=== PATIENT | female | born 1960 | race Caucasian/White ===

== ENCOUNTER 2017-07-06 06:26 | Day surgery (SDC) | payer BC ==
[2017-07-06] MEDS ORDERED: LIDOCAINE 2% MDV (20MG/ML) 20ML VIAL IV ONE (15:47)
[2017-07-06] MEDS ORDERED: FENTANYL PF 100MCG/2ML VIAL IV ONE (15:47)
[2017-07-06] MEDS ORDERED: PROPOFOL 10 MG/ML VIAL IV ONE (15:47)
--- NOTE | 2017-07-09 14:00 | Operative Note ---
DATE OF SURGERY: 07/06/2017 SURGEON: Vazquez Garcia MD OPERATION: ESOPHAGOGASTRODUODENOSCOPY. INDICATIONS: This is a 57-year-old female with a history of intermittent episodes of dysphagia who presented for esophagogastroduodenoscopy. POSTOPERATIVE DIAGNOSES: 1. Normal esophagus with no specific stricture, status post Santos dilator 60-Irish. 2. Diffuse gastritis. 3. Normal duodenum. ANESTHESIA: Sedation is per Anesthesia. Pulse oximetry was monitored throughout the procedure to maintain O2 saturation of 90% or greater. Supplemental oxygen was administered via nasal cannula. Cardiac and vital signs were monitored throughout the duration of the procedure, and they were stable. The procedure of esophagogastroduodenoscopy and risks and benefits of the procedure, including the risk of bleeding and perforation, among others, were explained to the patient who voiced understanding and desired to have the procedure done. Physical examination was performed, and the patient was found stable for sedation. PROCEDURE: The patient was placed in the left lateral position and sedation was initiated. A plastic bite block was inserted into the oral cavity. The Olympus DNP395 gastroscope was introduced into the oral cavity and advanced to the proximal esophagus without difficulty. The esophageal mucosa was carefully examined upon introduction of the gastroscope. The proximal, mid, and distal esophageal mucosa appeared normal. The gastroscope was then advanced into the stomach, and surveillance of the stomach revealed diffuse erythema involving the gastric body and antrum but no ulcers were noted. The gastroscope was then advanced to the descending duodenum without difficulty. The duodenal bulb and descending duodenum appeared normal. The gastroscope was then withdrawn into the stomach and retroflexion was performed. There were no other lesions noted. The gastroscope was then withdrawn while carefully examining the gastric and esophageal mucosa. No other lesions noted. Multiple gastric and mid esophageal biopsies were obtained. She remained with stable vital signs. A Santos dilator size 60-Irish was then passed to the stomach with minimal resistance. The Santos dilator was then withdrawn and the procedures were terminated. The patient tolerated the procedures well without any immediate complications. She remained with stable vital signs and was transferred to the recovery room. RECOMMENDATIONS: 1. The patient should continue on her proton pump inhibitors. 2. I will be happy to see her back in the office as needed. Thank you for allowing me to participate in the care of your patient. CC: Dr. Dawit BEAVER
== END 2017-07-06 08:16 | disposition home or self-care (01) ==
LOC: HOP 06:26
PROVIDERS: ATTEND Internal Medicine Gastroenterology
DX: R13.10 Dysphagia, unspecified (principal); K29.70 Gastritis, unspecified, without bleeding; E11.9 Type 2 diabetes mellitus without complications; Z79.4 Long term (current) use of insulin
CPT/HCPCS: 43235; 00740; J3010

== ENCOUNTER 2018-08-09 07:27 | Day surgery (SDC) | payer BC ==
[2018-08-09] MEDS ORDERED: LIDOCAINE 2% MDV (20MG/ML) 20ML VIAL IV ONE (07:28)
[2018-08-09] MEDS ORDERED: PROPOFOL 10 MG/ML VIAL IV ONE (07:28)
--- NOTE | 2018-08-12 11:30 | Operative Note ---
DATE OF SURGERY: 08/09/2018 SURGEON: Vazquez Garcia MD OPERATION: COLONOSCOPY. INDICATIONS: This is a 58-year-old female with history of colon polyps who presented for surveillance colonoscopy. Last colonoscopy was 3 years ago. POSTOPERATIVE DIAGNOSIS: Normal colon. ANESTHESIA: Sedation is per Anesthesia. Pulse oximetry was monitored throughout the procedure to maintain O2 saturation of 90% or greater. Supplemental oxygen was administered via nasal cannula. Cardiac and vital signs were monitored throughout the duration of the procedure, and they were stable. The procedure of colonoscopy and risks and alternatives of the procedure, including the risk of bleeding and perforation, among others, were explained to the patient who voiced understanding and agreed to have the procedure done. Physical examination was performed, and the patient was found stable for sedation. PROCEDURE: The patient was placed in the left lateral position. Sedation was initiated. A digital rectal exam was performed and showed some mild external hemorrhoids with no palpable rectal masses. An Olympus PCF-180AL colonoscope was then inserted into the rectum under direct visualization. It was advanced to the cecum without difficulty. The ileocecal valve and appendiceal orifice were identified and photographed. The colonic mucosa was carefully examined upon introduction of the colonoscope. There were no lesions noted. The colonoscope was then withdrawn while carefully examining the colonic mucosal surfaces. No lesions were noted. In the rectum, retroflexion was performed and grade 1 internal hemorrhoids were noted. The colonoscope was then withdrawn and the procedure was terminated. The patient tolerated the procedure well without any immediate complications. The patient remained with stable vital signs and was transferred to the recovery room. RECOMMENDATIONS: 1. The patient should be on a high-fiber diet. 2. The patient is to have a repeat colonoscopy for surveillance in 5 years. Thank you for allowing me to participate in the care of your patient. CC: DO SARANYA Gonzalez
== END 2018-08-09 08:43 | disposition home or self-care (01) ==
LOC: HOP 07:27
PROVIDERS: ATTEND Internal Medicine Gastroenterology
DX: Z12.11 Encounter for screening for malignant neoplasm of colon (principal); Z86.010 Personal history of colon polyps
CPT/HCPCS: 00812; G0105